=== PATIENT | female | born 1990 | race Caucasian/White ===

== ENCOUNTER → 2020-07-07 16:48 | Outpatient (CLI) | payer BC, SELFPAY ==
--- NOTE | ~2020-07-07 | XR_ITS ---
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 TECHNIQUE: Lateral views of the left and right temporomandibular joints were obtained with the mouth in the closed and open position. COMPARISON: None. FINDINGS: There is normal alignment of the bilateral temporomandibular joints in the closed mouth position. The re is normal anterior translation of the mandibular condyles on both the left and right with the mout h in the open position. No significant degenerative changes identified at the mandibular condyles. No fracture. Multiple dental restorations. IMPRESSION: 1. Normal alignment and motion at the bilateral temporomandibular joints. Reviewed, dictated and finalized at location A. [employer]
== END ==
PROVIDERS: PCP Family Medicine
DX: M26.609 Unspecified temporomandibular joint disorder, unspecified side (principal)
CPT/HCPCS: 70330